=== PATIENT | female | born 1990 | race Caucasian/White ===

== ENCOUNTER 2019-03-27 09:30 | Inpatient (IN) ==
--- NOTE | 2019-03-18 15:01 | Anesthesiology Consultation ---
Date of Service March 18, 2019 Assessment & Plan (1) Encounter for pre-operative examination: Bar Finish Operator needed (Maltese): patient declined [facility] quarantine inspector at PAT visit. PAT visit done with aid of friend (Zuleyma) to translate at visit. Patient made aware that quarantine inspector will be available for them DOS if requested. L&D made aware of the above. Chart Review Chart Review: Acceptable Risk for Surgery (pending labs) and Patient seen in Pre Admission Testing Teaching & Discussion Pre-Anesthesia Teaching/Discussion Notes: Instructed NPO after midnight before surgery,except medications with 15 cc of water. Medication instructions provided according to the PAT guidelines. History Surgery Operation Date: 03/30/19 08:55 Proposed Procedures p Section in LD - Lew Bergman MD s Post Tubal Ligation Labor & Delivery - Lew Bergman MD Height/Weight Height: 5 ft Weight: 57.2 kg Allergies Allergy/AdvReac Type Severity Reaction Status Date / Time No Known Allergies Allergy Unverified 03/18/19 14:46 Medications Home Medications Medication Instructions Recorded Confirmed Last Taken No Known Home Medications 03/18/19 03/18/19 Unknown Past Medical History Medical History No significant past medical history Past Surgical History Surgical History Hx of section 2013: 05/10 elevated BP: "good pain control" with SAB/epidural (patient unsure what was used) Social History Smoking Status: Never smoker Do You Dip or Chew Tobacco: No Hx Alcohol Use: No Hx Substance Use: No substance use type: does not use Review of Systems Patient denies chest pain, shortness of breath, dyspnea on exertion, joint pain, reflux, cough, wheezing, palpitations. Physical Exam Vital Signs Last Vital Signs Temp 36.6 C 03/18/19 14:48 Pulse 75 03/18/19 14:48 Resp 18 03/18/19 14:48 BP 100/65 03/18/19 14:48 Pulse Ox 97 03/18/19 14:48 PHYSICAL Full neck and c-spine range of motion. Full TMJ range of motion. TMD 3 finger breaths Mallampati Score 2 Dentition: intact, upper front implants Lungs: clear throughout to auscultation Cardiac: regular rate and rhythm, no murmurs noted Spine: normal Extremities: no edema
[2019-03-18 15:40] LABS: Basophils # (auto) 0.01 K/uL (0-0.2); Basophils % (auto) 0.1 %; Eosinophils # (auto) 0.05 K/uL (0-0.5); Eosinophils % (auto) 0.6 %; Hematocrit (blood only) 36.4 % (37-47); Hemoglobin 12.2 g/dL (12.0-16.0); Immature Granulocytes # (auto) 0.01 K/uL (0.00-0.02); Immature Granulocytes % (auto) 0.1 %; Lymphocytes # (auto) 1.36 K/uL (1.2-3.4); Lymphocytes % (auto) 16.7 %; Mean Corpuscular Hgb Conc 33.5 g/dL (32-36); Mean Corpuscular Volume 86.7 fL (80-100); Mean Platelet Volume 12.5 fL (7.4-10.4); Monocytes # (auto) 0.26 K/uL (0.11-0.59); Monocytes % (auto) 3.2 %; Neutrophils # (auto) 6.45 K/uL (1.4-6.5); Neutrophils % (auto) 79.3 %; Platelet Count 170 K/uL (130-400); RDW Coefficient of Variation 13.4 % (11.5-14.5); RDW Standard Deviation 42.6 fL (36.4-46.3); White Blood Count 8.14 K/uL (4.8-10.8)
[2019-03-18 15:49] LABS: BUN Creatinine Ratio 12.4 (10-20); Calcium 8.5 mg/dl (8.5-10.1); Est GFR (African American) 138.3; Est GFR (Non-African American) 119.3; Potassium 3.4 mmol/L (3.5-5.1)
[2019-03-18 15:58] LABS: INR 0.9 (0.9-1.1); Partial Thromboplastin Time 27.7 Seconds (21.0-31.0); Prothrombin Time 9.4 Seconds (9.0-12.0)
[2019-03-18 16:23] LABS: Rubella IgG Antibody Immune (Immune)
[2019-03-18 16:24] LABS: Hepatitis B Surface Antigen Neg (Neg)
--- NOTE | 2019-03-26 15:03 | History and Physical Report ---
DATE OF ADMISSION: 03/26/2019 CHIEF COMPLAINT: Intrauterine growth retardation, previous section, desire for permanent sterilization. HISTORY OF PRESENT ILLNESS: The patient is a 28-year-old 3, para 2. Her general health is good. has been well dated. She had an ultrasound done on 09/09/2018 10 weeks 1 day giving her a due date of 04/06/2019. 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 Her first delivery was 2010, male, spontaneous delivery at 40 weeks. She is uncertain of the weight. She says it is normal. Second in 2012, she had a stat at about 35 weeks for hypertension associated with her . She has had an intrauterine growth retardation diagnosed by ultrasound on 03/10/2019. By her dates it was 36 weeks and all of her parameters were at least 2 weeks behind and her abdominal circumference was actually 3 weeks behind. She presently is being scheduled for repeat section. She also requests permanent sterilization. She has been made aware of the procedure of tubal ligation including the fact that this is intended to result in permanent and irreversible sterility that it is associated with occasional failures and the patient may get despite having had her tubes tied. She is also aware of alternative temporary forms of control. The patient is being admitted for repeat low segment section and bilateral tubal ligation. PAST MEDICAL HISTORY: She has 2 children in good health. Had hypertension with her second . ALLERGIES: No known drug allergies. PAST SURGICAL HISTORY: Previous for hypertension. SOCIAL HISTORY: No smoking, no alcohol intake. Works as a housewife. FAMILY HISTORY: Mom is 54 in good health. Father 55, has diabetes. Two brothers and 7 sisters, 1 sister is diabetic. REVIEW OF SYSTEMS: HEAD: No symptoms of frequent severe headaches, nosebleeds or bladder infections. PHYSICAL EXAMINATION: GENERAL: A 28-year-old [facility] female, alert, oriented x3 and cooperative, no acute distress. EYES: Conjunctivae are pink. Sclerae white. No evidence of jaundice. EARS: Had normal light reflex bilaterally. HEART: Had regular rhythm. S1, S2 are normal. BREASTS: Normal. LUNGS: Clear to auscultation and percussion. ABDOMEN: Abdominal size consistent with about a 33-week gestational size fetus. Fundal height measures out to 33 cm. There is a well-healed Pfannenstiel scar. There was no CVA tenderness. PELVIC: Cervix to be posterior, closed and about 80% effaced. MUSCULOSKELETAL: Revealed no calf tenderness. IMPRESSIONS OF THIS CASE: Prior for elevated blood pressure and , desire for permanent sterilization, intrauterine growth retardation.
[~2019-03-27 09:30] MED LIST: CITRIC ACID/SODIUM CITRATE 15 ML UDC PO SCH
--- NOTE | 2019-03-27 10:54 | History & Physical Bridge Note ---
Date of Service March 27, 2019 History & Physical Bridge Note I have examined the patient, reviewed the History & Physical and in the interval since the performance of the History & Physical I have noted the following changes of clinical significance: no changes noted
[2019-03-27] MEDS ORDERED: LACTATED RINGER'S 1,000 ML IV SCH ×2 (11:00→13:45)
[2019-03-27] MEDS ORDERED: cefOXitin 2,000 MG in DEXTROSE 5% 50 ML IV SCH (11:15)
[2019-03-27 11:17] LABS: Basophils # (auto) 0.01 K/uL (0-0.2); Basophils % (auto) 0.1 %; Eosinophils # (auto) 0.07 K/uL (0-0.5); Eosinophils % (auto) 0.8 %; Hematocrit (blood only) 34.7 % (37-47); Hemoglobin 11.6 g/dL (12.0-16.0); Immature Granulocytes # (auto) 0.03 K/uL (0.00-0.02); Immature Granulocytes % (auto) 0.4 %; Lymphocytes # (auto) 2.09 K/uL (1.2-3.4); Lymphocytes % (auto) 25.1 %; Mean Corpuscular Hemoglobin 28.7 pg (25-34); Mean Corpuscular Hgb Conc 33.4 g/dL (32-36); Mean Corpuscular Volume 85.9 fL (80-100); Mean Platelet Volume 12.3 fL (7.4-10.4); Monocytes # (auto) 0.45 K/uL (0.11-0.59); Monocytes % (auto) 5.4 %; Neutrophils # (auto) 5.67 K/uL (1.4-6.5); Neutrophils % (auto) 68.2 %; Platelet Count 163 K/uL (130-400); RDW Coefficient of Variation 13.5 % (11.5-14.5); RDW Standard Deviation 41.9 fL (36.4-46.3); Red Blood Count 4.04 M/uL (4.2-5.4); White Blood Count 8.32 K/uL (4.8-10.8)
[2019-03-27] MEDS ORDERED: LIDOCAINE/EPINEPHRINE 1% 20 ML VIAL ONE (11:51)
[2019-03-27] MEDS ORDERED: fentaNYL citrate 100 MCG/2 ML VIAL ONE (12:15)
[2019-03-27] MEDS ORDERED: MoRPHine SULFATE PF 1 MG/ML 10 ML AMP/VIAL ONE (12:15)
[2019-03-27] MEDS ORDERED: OXYTOCIN 10 UNITS/ML VIAL IM ONE (12:56)
--- NOTE | 2019-03-27 13:06 | Anesthesiology Consultation ---
Date of Service March 27, 2019 Assessment & Plan (1) Encounter for pre-operative examination: Chart Review Chart Review: Acceptable Risk for Surgery and Patient NOT seen in Pre Admission Testing Consults Requested none Proposed Anesthesia Risk / Benefits Reviewed With: PT / POA / Parent / Guardian, Accepts Plan and Informed Consent Obtained History Surgery Operation Date: 03/27/19 11:30 Proposed Procedures p Section in ЕКАТЕРИНА Bergman MD Operation Date: 03/30/19 09:00 Proposed Procedures p Section with Noah Bergman MD s Post Tubal Ligation ЕКАТЕРИНА Bergman MD Height/Weight Height: 4 ft 10 in Weight: 58.06 kg Allergies Allergy/AdvReac Type Severity Reaction Status Date / Time No Known Allergies Allergy Unverified 03/18/19 14:46 Medications Home Medications Medication Instructions Recorded Confirmed Last Taken No Known Home Medications 03/18/19 03/18/19 Unknown Past Medical History Medical History No significant past medical history Exercise / Class Metabolic Activity II 4-5 Yardwork/Stairs/Walk up hill Past Surgical History Surgical History Hx of section 2013: 05/10 elevated BP: "good pain control" with SAB/epidural (patient unsure what was used) Past Anesthesia History No Hx of Anesthesia Complications and No Family Hx of Anesthesia Complications History of PONV No Hx of PONV and No Hx of Motion Sickness Social History Smoking Status: Never smoker Do You Dip or Chew Tobacco: No Hx Alcohol Use: No Hx Substance Use: No substance use type: does not use Physical Exam Vital Signs Last Vital Signs Temp 36.8 C 03/27/19 09:54 Pulse 75 03/18/19 14:48 Resp 18 03/27/19 09:54 BP 100/65 03/18/19 14:48 Pulse Ox 97 03/18/19 14:48 ENMT Mouth: no dentition abnormality Thyromental Distance: > or= 3.5 Finger Breadths Mallampati Class: II Neck normal visual inspection Respiratory normal respiratory effort Auscultation: lungs clear to auscultation bilaterally Cardiovascular Rate/Rhythm: regular rate and regular rhythm Psychiatric Orientation: alert Testing Laboratory Results 03/27/19 11:01 03/18/19 15:14 PT 9.4 Seconds (9.0-12.0) 03/18/19 15:14 INR 0.9 (0.9-1.1) 03/18/19 15:14 APTT 27.7 Seconds (21.0-31.0) 03/18/19 15:14 Blood Type O Positive 03/18/19 15:14 Antibody Screen NEGATIVE 03/18/19 15:14
[2019-03-27] MEDS ORDERED: ePHEDrine sulfate 50 MG/ML AMP IV PRN (13:08)
[2019-03-27] MEDS ORDERED: MoRPHine SULFATE 2 MG/ML CARP IV PRN (13:08)
[2019-03-27] MEDS ORDERED: KETOROLAC 30 MG/ML VIAL IV PRN (13:08)
[2019-03-27] MEDS ORDERED: ONDANSETRON INJ 2 MG/ML 2 ML VIAL IV PRN (13:08)
[2019-03-27] MEDS ORDERED: DiphenhydrAMINE HCL 50 MG/ML VIAL IV PRN (13:08)
[2019-03-27] MEDS ORDERED: NALOXONE HCL 1 MG in SODIUM CHLORIDE 0.9% 1000ML 1,000 ML IV PRN (13:08)
[2019-03-27] MEDS ORDERED: NALOXONE HCL 0.08 MG in SYRINGE 1.8 ML IV PRN (13:08)
[2019-03-27] MEDS ORDERED: MoRPHine SULFATE PF 1 MG/ML 10 ML AMP/VIAL INT SPINAL ONE (13:08)
[2019-03-27] MEDS ORDERED: LACTATED RINGER'S 500 ML IV PRN (13:08)
[2019-03-27] MEDS ORDERED: NALOXONE HCL 0.4 MG/1 ML VIAL/CARP IV PRN (13:08)
[2019-03-27] MEDS ORDERED: NALBUPHINE HCL INJ 10 MG/ML AMP IV PRN (13:08)
[2019-03-27] MEDS ORDERED: HYDROmorphone INJ 0.5 MG/0.5 ML SYR IV PRN (13:08)
--- NOTE | 2019-03-27 13:08 | Anesthesiology Consultation ---
Date of Service March 27, 2019 Assessment & Plan (1) Encounter for pre-operative examination: Chart Review Chart Review: Acceptable Risk for Surgery and Patient NOT seen in Pre Admission Testing Consults Requested none ASA ASA2 Proposed Anesthesia Anesthesia Type: Spinal Risk / Benefits Reviewed With: PT / POA / Parent / Guardian, Accepts Plan and Informed Consent Obtained History Surgery Operation Date: 03/27/19 11:30 Proposed Procedures p Section in ЕКАТЕРИНА Bergman MD Operation Date: 03/30/19 09:00 Proposed Procedures p Section chinedu Bergman MD s Post Tubal Ligation ЕКАТЕРИНА Bergman MD Height/Weight Height: 4 ft 10 in Weight: 58.06 kg Allergies Allergy/AdvReac Type Severity Reaction Status Date / Time No Known Allergies Allergy Unverified 03/18/19 14:46 Medications Home Medications Medication Instructions Recorded Confirmed Last Taken No Known Home Medications 03/18/19 03/18/19 Unknown NPO Date Last Intake of Fluids: 03/26/19 Time Last Intake of Fluids: 20:00 Date Last Intake of Solids: 03/26/19 Time Last Intake of Solids: 20:00 Past Medical History Medical History No significant past medical history Exercise / Class Metabolic Activity II 4-5 Yardwork/Stairs/Walk up hill Past Surgical History Surgical History Hx of section 2013: 05/10 elevated BP: "good pain control" with SAB/epidural (patient unsure what was used) Past Anesthesia History No Hx of Anesthesia Complications and No Family Hx of Anesthesia Complications History of PONV No Hx of PONV and No Hx of Motion Sickness Social History Smoking Status: Never smoker Do You Dip or Chew Tobacco: No Hx Alcohol Use: No Hx Substance Use: No substance use type: does not use Physical Exam Vital Signs Last Vital Signs Temp 36.8 C 03/27/19 09:54 Pulse 75 03/18/19 14:48 Resp 18 03/27/19 09:54 BP 100/65 03/18/19 14:48 Pulse Ox 97 03/18/19 14:48 ENMT Mouth: no dentition abnormality Thyromental Distance: > or= 3.5 Finger Breadths Mallampati Class: II Neck normal visual inspection Respiratory normal respiratory effort Auscultation: lungs clear to auscultation bilaterally Cardiovascular Rate/Rhythm: regular rate and regular rhythm Psychiatric Orientation: alert Testing Laboratory Results 03/27/19 11:01 03/18/19 15:14 PT 9.4 Seconds (9.0-12.0) 03/18/19 15:14 INR 0.9 (0.9-1.1) 03/18/19 15:14 APTT 27.7 Seconds (21.0-31.0) 03/18/19 15:14 Blood Type O Positive 03/18/19 15:14 Antibody Screen NEGATIVE 03/18/19 15:14
[2019-03-27] MEDS ORDERED: SODIUM CHLORIDE 0.9% 1000ML 1,000 ML IV SCH (13:15)
[2019-03-27] MEDS ORDERED: NO NARCOTICS OR SEDATIVES SCH (13:15)
[2019-03-27] MEDS ORDERED: DC INTRASPINAL MORPHINE SCH (13:15)
[2019-03-27] MEDS ORDERED: KETOROLAC 30 MG/ML VIAL ONE (13:16)
[2019-03-27] MEDS ORDERED: OXYTOCIN 10 UNITS/ML VIAL ONE (13:16)
[2019-03-27] MEDS ORDERED: PHENYLEPHRINE 100MCG/ML 5ML SYR ONE (13:17)
[2019-03-27] MEDS ORDERED: SENNA 8.6 MG TAB PO PRN (13:33)
[2019-03-27] MEDS ORDERED: MAGNESIUM HYDROXIDE SUSP 30 ML UDC PO PRN (13:33)
[2019-03-27] MEDS ORDERED: BENZOCAINE 20% AER SPR 82.5 GM CAN EXT PRN (13:33)
[2019-03-27] MEDS ORDERED: DIPHTHERIA/TETANUS/PERTUSSIS 0.5 ML SYR/VIAL IM ONE (13:33)
[2019-03-27] MEDS ORDERED: SUPERCREAM 0.870% 15 GM JAR EXT PRN (13:33)
[2019-03-27] MEDS ORDERED: HYDROCORTISONE ACETATE 25 MG SUPP PR PRN (13:33)
--- NOTE | 2019-03-27 13:33 | Post Operative Brief Note ---
Immediate Post Op Note v1 Date of Surgery March 27, 2019 Pre & Post Diagnosis Operation Date: 03/27/19 11:30 Post-Op Diagnosis: same with delivery of living female child at 1238 Operation Date: 03/30/19 09:00 <No data on this case meets the specified criteria> I identified the patient and participated in the time-out.: Yes Procedure Operation Date: 03/27/19 11:30 Actual Procedures p Section in LD(Bilateral) - Lew Bergman MD Operation Date: 03/30/19 09:00 <No data on this case meets the specified criteria> Surgeon Lew Bergman MD Employment Security Officer Dr Maguire Estimated Blood Loss 500 Findings Consistent with Post-Op Diagnosis Fluids 1200 ml Specimens placenta portion of both fallopian tubes Drains Hernandez Catheter Anesthesia Type Spinal Disposition Accompanied Patient To Recovery: No Disposition: Recovery Room
--- NOTE | 2019-03-27 13:46 | Operative Report ---
DATE OF OPERATION: 03/27/2019 PROCEDURE: Repeat section, bilateral tubal ligation. INDICATIONS FOR SURGERY: Intrauterine growth retardation, no growth for the past 2-1/2 weeks and desire for permanent sterilization. PREOPERATIVE DIAGNOSES: Intrauterine growth retardation, desire for permanent sterilization. POSTOPERATIVE DIAGNOSES: Intrauterine growth retardation, desire for permanent sterilization, delivered live . SURGEON: Marni Bergman MD. NUT SIFTER: Dr. Clifton. ESTIMATED BLOOD LOSS: 500 mL. OPERATIVE FINDINGS AND PROCEDURE: The patient was brought to the OR table, correctly identified by armband and conversation. Spinal anesthesia was administered. Compression stockings and a Hernandez catheter were inserted into the bladder. Lower abdomen was painted with an alcohol-based sterilizing solution and draped in usual sterile fashion. The level of the anesthesia was checked and found to be adequate. A Pfannenstiel incision was made through a previous scar and carried down to the anterior fascia. Hemostasis was secured by electrocauterization. Fascia was incised transversely from the underlying muscle by blunt and sharp dissection. Recti muscles were in the midline exposing the peritoneum, which was carefully entered. Lower uterine segment was exposed. Incision was made above the vesicouterine fold. The lower uterine segment was scored with a knife and entered with scissors. Clear amniotic fluid was seen at this time. Incision was then extended laterally. A Vectis retractor was inserted and with fundal pressure, the infant's head was delivered. Nuchal cord x2. was suctioned through the mouth and the nose. Cord was clamped and cut and infant was attended to by the seat cover maker who was scrubbed and present at the time of delivery, Dr. Ivey. Following this, the placenta was removed manually. Uterus and tubes were brought out through the incision. Uterine cavity was cleansed with a clean sponge. Ten units of Pitocin were injected into the myometrium. The lower uterine segment was repaired in 2 layers. Muscular layer was repaired with a running chromic. Then, the fascial layer was repaired over this with a continuous locking suture of heavy Vicryl. There was some bleeding on the left corner of the incision and this was controlled by 3 horizontal sutures, one below the incision and two above. This created good hemostasis and then 2 interrupted [id number] sutures in the middle of the approximation. Following this, attention was turned to the tubes and ovaries. Tubal ligation was performed by isolating the tubes, ligating the tubes proximally and distally and then removing the segment in between. This was done for both the right and left fallopian tube. The pelvis was cleansed of all blood clots and debris and irrigated. Uterus, tubes, and ovaries were reinserted into the abdominal cavity. The incisional line and the area of the tubal that had been done was checked and found to be hemostatic. Careful anatomical approximation of the anterior abdominal wall was performed. Peritoneum was closed with a continuous interlocking suture of chromic. Muscle was approximated with interrupted [id number] suture of chromic. Fascia was closed with continuous interlocking suture of Vicryl on each side, tied in the midline. SubQ was approximated with a running subcuticular suture and the skin edges were approximated with staple clips. I attest to the content of the Intraoperative Record and any orders documented therein. Any exception s are noted below.
[2019-03-27] MEDS ORDERED: PNEUMOCOCCAL Polysaccharide Vaccine 25mcg/0.5mL vial/Syr IM ONE (15:00)
[2019-03-27] MEDS ORDERED: HYDROmorphone INJ 1 MG/ML SYRINGE IV PRN (16:44)
--- NOTE | 2019-03-27 16:53 | Anesthesiology Progress Note ---
Date of Service March 27, 2019 Anesthesia Post Procedure Vital Signs Vital Signs: Temp Pulse Resp BP Pulse Ox 03/27/19 16:49 54 L 98 03/27/19 16:44 57 L 97 03/27/19 16:39 55 L 97 03/27/19 16:34 54 L 100 03/27/19 16:29 57 L 99 03/27/19 16:24 50 L 97 03/27/19 16:23 53 L 113/58 L 03/27/19 16:19 50 L 99 03/27/19 16:14 53 L 100 03/27/19 16:09 51 L 98 03/27/19 16:04 53 L 97 03/27/19 15:59 58 L 98 03/27/19 15:54 58 L 99 03/27/19 15:53 52 L 104/63 03/27/19 15:49 58 L 98 03/27/19 15:44 58 L 100 03/27/19 15:39 50 L 99 03/27/19 15:34 51 L 98 03/27/19 15:29 49 L 98 03/27/19 15:25 18 03/27/19 15:24 49 L 97 03/27/19 15:23 49 L 123/76 03/27/19 15:19 50 L 98 03/27/19 15:14 51 L 98 03/27/19 15:09 50 L 97 03/27/19 15:04 58 L 99 03/27/19 14:59 55 L 99 03/27/19 14:54 20 03/27/19 14:52 55 L 114/69 03/27/19 14:45 36.3 C L 18 03/27/19 14:43 53 L 112/60 03/27/19 14:35 18 03/27/19 14:33 53 L 114/59 L 03/27/19 14:25 34.9 C L 18 03/27/19 14:24 55 L 110/55 L 03/27/19 14:15 34.9 C L 18 03/27/19 14:13 60 116/79 03/27/19 14:03 50 L 115/67 03/27/19 13:55 18 03/27/19 13:53 50 L 101/62 03/27/19 13:45 34.3 C L 18 03/27/19 13:33 55 L 83/48 L 03/27/19 09:54 36.8 C 18 Pain Intensity Lower Abdomen: Pain Intensity: 5 Transfer of Care Handoff Completed per policy Notes Mental Status: alert / awake / arousable Nausea / Vomiting: adequately controlled Pain: adequately controlled Airway Patency, RR, SpO2: stable & adequate BP & HR: stable & adequate Hydration State: stable & adequate Neuraxial Anesthesia: was administered and sensory block is resolving Anesthetic Complications: no major complications apparent
[2019-03-27] MEDS: DOCUSATE SODIUM 100 MG CAP PO SCH (20:55)
[2019-03-27] MEDS: SIMETHICONE 80 MG CHEW PO SCH (20:55)
[2019-03-28] MEDS ORDERED: DiphenhydrAMINE HCL 50 MG/ML VIAL IV PRN (07:09)
[2019-03-28] MEDS ORDERED: MEPERIDINE HCL 50 MG/ML CARP IV PRN (07:09)
[2019-03-28] MEDS ORDERED: KETOROLAC 30 MG/ML VIAL IV PRN (07:09)
[2019-03-28] MEDS ORDERED: PROMETHAZINE HCL 25 MG in SODIUM CHLORIDE 0.9% 50 ML IV PRN (07:09)
[2019-03-28] MEDS ORDERED: ZOLPIDEM TARTRATE 5 MG TAB PO PRN (07:09)
[2019-03-28] MEDS ORDERED: ONDANSETRON INJ 2 MG/ML 2 ML VIAL IV PRN (07:09)
[2019-03-28 09:29] LABS: Eosinophils # (auto) 0.02 K/uL (0-0.5); Eosinophils % (auto) 0.2 %; Hematocrit (blood only) 31.1 % (37-47); Hemoglobin 10.4 g/dL (12.0-16.0); Immature Granulocytes # (auto) 0.02 K/uL (0.00-0.02); Immature Granulocytes % (auto) 0.2 %; Lymphocytes # (auto) 1.19 K/uL (1.2-3.4); Lymphocytes % (auto) 11.2 %; Mean Corpuscular Hemoglobin 28.9 pg (25-34); Mean Corpuscular Hgb Conc 33.4 g/dL (32-36); Mean Corpuscular Volume 86.4 fL (80-100); Monocytes % (auto) 2.8 %; Neutrophils # (auto) 9.12 K/uL (1.4-6.5); Neutrophils % (auto) 85.6 %; Platelet Count 148 K/uL (130-400); RDW Coefficient of Variation 13.3 % (11.5-14.5); RDW Standard Deviation 41.9 fL (36.4-46.3); White Blood Count 10.65 K/uL (4.8-10.8)
[2019-03-28] MEDS: IBUPROFEN 600 MG TAB PO PRN ×3 (09:31→21:00)
[2019-03-28] MEDS: OXYCODONE/ACETAMINOPHEN 5mg/325mg TAB PO PRN ×3 (09:31→21:00)
--- NOTE | 2019-03-28 10:50 | Obstetrical Progress Note ---
Date of Service March 28, 2019 Physical Exam Physical Exam: abdomen soft and non tender passing flatus bowel sounds are normal incision is clean and dry bandage removed ambulating well vaginal bleeding scant hgb 10.4 Results & Data Vital Signs (Past 12 Hours) Vital Signs Temp Pulse Resp BP Pulse Ox 03/28/19 07:25 37.2 C 66 18 104/70 97 03/28/19 06:00 16 97 03/28/19 05:00 16 98 03/28/19 04:14 16 97 03/28/19 03:40 37.0 C 63 16 125/78 97 03/28/19 03:00 16 99 03/28/19 02:00 16 96 03/28/19 01:06 16 97 03/28/19 00:10 16 99 03/27/19 23:25 36.8 C 63 16 110/69 97 03/27/19 23:00 16 97
[2019-03-28] MEDS: DOCUSATE SODIUM 100 MG CAP PO SCH (12:10)
[2019-03-28] MEDS: FERROUS SULFATE 325 MG TAB PO SCH (12:10)
[2019-03-28] MEDS: PRENATAL VITAMIN 1 TAB PO SCH (12:10)
[2019-03-28] MEDS: SIMETHICONE 80 MG CHEW PO SCH ×3 (12:11→20:59)
[2019-03-28] MEDS ORDERED: CALCIUM CARBONATE 500 MG CHEWABLE TAB PO PRN (14:52)
[2019-03-28] MEDS ORDERED: bisacodyL 5 MG TABEC PO SCH (20:00)
[2019-03-29] MEDS: IBUPROFEN 600 MG TAB PO PRN ×2 (01:38→05:31)
[2019-03-29] MEDS: OXYCODONE/ACETAMINOPHEN 5mg/325mg TAB PO PRN ×2 (01:39→05:31)
[2019-03-29 06:37] LABS: Hematocrit (blood only) 29.6 % (37-47); Hemoglobin 9.7 g/dL (12.0-16.0)
[2019-03-29] MEDS: SIMETHICONE 80 MG CHEW PO SCH ×3 (07:27→08:51)
[2019-03-29] MEDS: DOCUSATE SODIUM 100 MG CAP PO SCH ×2 (07:27→08:51)
[2019-03-29] MEDS: PRENATAL VITAMIN 1 TAB PO SCH (08:51)
[2019-03-29] MEDS: FERROUS SULFATE 325 MG TAB PO SCH (08:52)
--- NOTE | 2019-03-29 09:18 | Obstetrical Progress Note ---
Date of Service March 29, 2019 Assessment & Plan (1) Encounter for pre-operative examination: POD #3 pt doing well d/c home with instruction Subjective Ambulation: ambulating normally Voiding: no voiding problems Passing Gas:: Yes Diet Tolerance:: regular diet Lochia:: Small Feeding Type:: breast feeding Review of Systems All systems reviewed & are unremarkable except as noted in HPI & below Physical Exam Constitutional WD/WN, vitals as above well developed and well nourished Eyes PERRL, conjunctivae normal, anicteric sclerae ENMT external ear and nose normal, oropharynx normal Neck trachea midline, no thyromegaly Respiratory normal respiratory effort, lungs clear to auscultation Auscultation: no crackles, no rales and no wheezes Cardiovascular RRR, no murmur, no edema Chest (Breasts) normal inspection/palpation of breasts Gastrointestinal (Abdomen) normal bowel sounds, soft, nontender, no hepatosplenomegaly Uterus is below umbilicus Musculoskeletal no cyanosis or clubbing, extremities motor strength 5/5 Skin no rashes, warm and dry + incision (Clean,dry and intact) Neurologic patellar DTR's 2+ bilat, sensation intact Psychiatric A+Ox3, euthymic affect Genitourinary normal external appearance Lymphatic no cervical or axillary lymphadenopathy Results & Data Vital Signs (Past 12 Hours) Vital Signs Temp Pulse Resp BP Pulse Ox 03/28/19 23:30 36.8 C 72 16 99/68 L 97
[2019-03-29] MEDS ORDERED: bisacodyL 10 MG SUPP PR PRN (13:33)
--- NOTE | 2019-04-05 15:59 | Discharge Summary ---
She was admitted. She is a 3, para 2 on admission. Previously, had a at [address] in [facility], and followed in the office for care and delivery. She desired permanent sterilization, requested repeat low segment section and brought her in at 39 weeks. She underwent primary low segment section, bilateral tubal ligation. Preoperative hemoglobin was 11.6 and hematocrit 34.7. Postoperatively, it dropped to 9.7, hematocrit 29.6. Her bowel sounds returned promptly. On the second postoperative day, she was ambulating well, eating well and requested discharge and was discharged with a combination of Percocet and Motrin for pain control and told to return to the office for removal of agustin.
== END 2019-03-29 13:44 | disposition home or self-care (01) | DRG 785 ==
LOC: 4S2 09:30 → 4S1 12:27 → 4S2 17:05 → EDSTATUS 03-30 10:15